=== PATIENT | female | born 1980 | race Caucasian/White ===

== ENCOUNTER 2017-08-31 22:38 | Inpatient (IN) ==
[2017-09-01] MEDS ORDERED: Vancomycin Inj 1 GM/200 ML PIGGYBACK IV.SIG ONE (04:44)
[2017-09-01] MEDS ORDERED: Sod Chloride 0.9% Inj 1,000 ML IV.SIG ONE (04:44)
[2017-09-01] MEDS ORDERED: Piperacil/Tazo 3.375 GM Premix 50 ML IV.SIG ONE (04:44)
[2017-09-01 05:23] LABS: Baso % (Auto) 0.6 % (0.0-2.0); Eos # (Auto) 0.1 th/mm3 (0.0-0.4); Eos % (Auto) 1.9 % (0.0-4.0); Hematocrit 37.2 % (35.0-46.0); Hemoglobin 11.9 gm/dL (11.6-15.3); Lymph # (Auto) 1.9 th/mm3 (1.0-4.8); Lymph % (Auto) 25.3 % (9.0-44.0); Mean Corpuscular Hemoglobin 21.5 pg (27.0-34.0); Mean Corpuscular Volume 67.2 fL (80.0-100.0); Mean Platelet Volume 6.9 fL (7.0-11.0); Mono # (Auto) 0.4 th/mm3 (0.0-0.9); Mono % (Auto) 5.5 % (0.0-8.0); Neut % (Auto) 66.7 % (16.0-70.0); Platelet Count 378 th/mm3 (150-450); Red Blood Count 5.54 mil/mm3 (4.00-5.30); White Blood Count 7.5 th/mm3 (4.0-11.0)
--- NOTE | 2017-09-01 05:25 | ED ---
HPI General Chief complaint: Skin/Abscess/Foreign Body Stated complaint: skin Time Seen by Provider: 09/01/17 03:53 Source: patient Mode of arrival: ambulatory Limitations: no limitations History of Present Illness HPI narrative: The patient is a a 36 year old female who presents to the [facility] emergency department with a history of multiple areas of abscess formation that first began in her wrist on the left. The patient reports that she uses IV heroin and cocaine. The patient reports that she last used IV heroin, last cocaine use was 2 days ago. The patient reports that she has had a skin infection in the past involving the right arm treated by . She reports that this was associated with an infection in her heart. She denies any history of hepatitis or HIV. She denies having any known fevers with this, however she has had chills. She denies having any chest pain, chest pressure, or shortness of breath. She incidentally also reports having a dental abscess. On review of systems otherwise, she denies having any cough, congestion, neck pain, abdominal pain, vomiting, diarrhea, urinary symptoms, or neurologic symptoms. Related Data Home Medications Medication Instructions Recorded Confirmed No Known Home Medications 09/01/17 09/01/17 Allergies Allergy/AdvReac Type Severity Reaction Status Date / Time morphine AdvReac Severe "CHEST Verified 09/01/17 03:52 PRESSURE" Review of Systems ROS Unobtainable All other systems reviewed negative except as stated in HPI [facility] Medical History Medical History delivery delivered (Acute) IVDU (intravenous drug user) (Acute) Multiple sclerosis (Acute) Tubal ligation status (Acute) Surgical History Surgical History History of surgery on arm (Acute) Hx of appendectomy (Acute) Social History Social History Substance History: Active Abuse Second Hand Smoke Exposure: Yes Smoking Status: Current every day smoker Tobacco Type: Cigarettes How Often Do You Have a Drink Containing Alcohol: Never Recent Travel in [facility] within the Last 8 Weeks: No Recent Out of Country Travel within the Last 8 Weeks: No Substance Abuse Detail Heroin: Substance Use Status: Active Route Used Substance Abuse: Intravenously Reason for Use: Calm Down, Feels Good and Get High Immunization History Tetanus Immunization: Unsure Hx Influenza Vaccine This Season: No Exam Const General: cooperative, no acute distress and well developed Nutritional Appearance: well nourished Orientation: alert, awake and oriented x3 HENMT Head: normocephalic and atraumatic Nose: no nasal discharge and no epistaxis Mouth: moist mucous membranes Throat: posterior oropharynx normal Eyes Sclera: normal sclerae Pupils: PERRL Neck Neck: no meningeal signs, trachea midline and no JVD Resp Effort & Inspection: no use of accessory muscles Auscultation: clear to auscultation bilaterally Cardio Rate: regular rate Rhythm: regular rhythm Heart Sounds: no murmurs GI Inspection: non-distended Palpation: soft, no hepatosplenomegaly and nontender Back/Spine/Pelvis Back: no CVA tenderness Cervical Spine: No cervical spinal tenderness Thoracic/Lumbar Spine: No thoracic spinal tenderness and No lumbar spinal tenderness Skin General: dry skin (warm) Other: The patient on examination is noted diffuse swelling of the right upper extremity with swelling and redness at the medial aspect of the right arm. No pointing or area of fluctuance. The patient's dorsal left wrist has an area of erythema, no fluctuance, however crusting noted over the top of this area from prior drainage. The patient on examination of the left groin femoral vein and artery. An ultrasound of the soft tissues has been ordered to see the extent of the area of abscess. A final area of infection is noted along the left medial ankle. There is no fluctuance. The patient has overlying crusting of this area from prior drainage. These areas are tender on palpation. Neuro General: alert and awake Cranial Nerves: other (No facial asymmetry) Speech: speech normal Motor: no movement abnormalities noted Extrem General: normal to inspection (No calf tenderness on palpation.), no clubbing, no cyanosis and edema Laterality: on the right Psych Mood: congruent mood Affect: normal affect Judgment: judgment good Course Initial Documented Vital Signs Temperature 98.8 F 08/31/17 23:13 Pulse Rate 91 H 08/31/17 23:13 Respiratory Rate 18 08/31/17 23:13 Blood Pressure 137/78 08/31/17 23:13 Pulse Oximetry 98 08/31/17 23:13 Last Documented Vital Signs Temperature 98.4 F 09/01/17 15:11 Pulse Rate 75 09/01/17 15:11 Respiratory Rate 18 09/01/17 15:11 Blood Pressure 128/58 L 09/01/17 15:11 Pulse Oximetry 99 09/01/17 15:11 Sign Out Sign Out Data: Patient Sign Out occurred on 09/01/17 at 07:09. Patient's care was discussed, and care was transferred from Gisell Cai MD to Jeancarlos Turner MD. Sign Out Comment: The patient's case was checked out to Dr. Turner at the conclusion of my shift. The patient is pending ultrasound of the right upper extremity to rule out DVT, and left soft tissues of the groin to evaluate the depth and the extent of the abscess formation. Last updated by Gisell Cai MD at 09/01/17 07:08 Post-Handoff Eval: The patient was signed out to me at change of shift. We are waiting ultrasounds of the extremity as well as the inguinal region. Inguinal region shows a 4.2 cm groin abscess. This will be I&D by Lamberto Pham PA-C. Case was discussed with Dr. Denis, who will admit the patient to his service. Patient also has a DVT in her right upper extremity. Medical Decision Making MDM Narrative Medical decision making narrative: During the course of the patient's emergency department visit, the patient's history, examination, and differential diagnosis were reviewed with the patient. The patient was placed on a cardiac cath rn with oximetry and frequent blood pressure monitoring. The patient had IV access obtained and blood work sent for analysis. A diagnostic workup was started to evaluate for possible underlying deep space infection, versus superficial abscess, versus DVT. The patient was initially provided Zosyn and vancomycin after blood cultures and a lactic acid was sent for analysis. The patient was started on normal saline IV fluids. The patient's laboratory studies were overall unremarkable. The patient's ultrasound of the right upper extremity to rule out DVT, ultrasound of the left groin to evaluate for possible deep space infection was pending at the conclusion of my shift. The patient's case was checked out to the oncoming emergency physician to disposition the patient based on the conclusion of her workup. I anticipate that the patient will require admission to the hospitalist service. Differential Diagnosis Differential Diagnosis: Deep space infection, versus superficial abscess, versus bacteremia, versus sepsis, versus DVT Medical Records Medical records reviewed: Yes I reviewed the patient's medical records. POC Test Results POC Urine Results: Negative Lab Data Lab results reviewed: Yes I reviewed the patient's lab results. Result diagrams: 09/01/17 05:00 09/01/17 05:00 Lab Results 09/01/17 09/01/17 09/01/17 Range/Units 05:00 05:00 05:00 WBC (4.0-11.0) th/mm3 RBC (4.00-5.30) mil/mm3 Hgb (11.6-15.3) gm/dL Hct (35.0-46.0) % MCV (80.0-100.0) fL MCH (27.0-34.0) pg MCHC (32.0-36.0) % RDW (11.6-17.2) % Plt Count (150-450) th/mm3 MPV (7.0-11.0) fL Prelim Diff (Auto) Neut % (Auto) (16.0-70.0) % Lymph % (Auto) (9.0-44.0) % Bryan % (Auto) (0.0-8.0) % Eos % (Auto) (0.0-4.0) % Baso % (Auto) (0.0-2.0) % Neut # (Auto) (1.8-7.7) th/mm3 Lymph # (Auto) (1.0-4.8) th/mm3 Bryan # (Auto) (0.0-0.9) th/mm3 Eos # (Auto) (0.0-0.4) th/mm3 Baso # (Auto) (0.0-0.2) th/mm3 WBC Differential Diff Scan Differential Comment Platelet Estimate (Normal) Platelet Morphology (Normal) ESR 20 (0-20) mm/hr PT 10.3 (9.8-11.6) sec INR 1.0 Ratio APTT 30.3 H (24.3-30.1) sec Sodium 136 (136-145) meq/L Potassium 3.7 (3.5-5.1) meq/L Chloride 104 (98-107) meq/L Carbon Dioxide 26.2 (21.0-32.0) meq/L Anion Gap 6 (5-15) meq/L BUN 7 (7-18) mg/dL Creatinine 0.81 (0.50-1.00) mg/dL Estimated GFR 79 L (>89) mL/min Random Glucose 85 (74-106) mg/dL Lactic Acid (0.4-2.0) mmol/L Calcium 8.9 (8.5-10.1) mg/dL Magnesium 2.3 (1.5-2.5) mg/dL Total Bilirubin 0.3 (0.2-1.0) mg/dL AST 12 L (15-37) U/L ALT 16 (10-53) U/L Alkaline Phosphatase 77 (45-117) U/L Total Creatine Kinase 47 (26-192) U/L Troponin I Less than 0.02 L (0.02-0.05) ng/mL Total Protein 9.3 H (6.4-8.2) g/dL Albumin 3.7 (3.4-5.0) g/dL Lipase 71 L (73-393) U/L Urine Color (Yellw/Straw) Urine Clarity (Clear) Urine pH (5.0-8.5) Ur Specific [place] (1.002-1.035) Urine Protein (Neg-Trace) mg/dL Urine Glucose (UA) (Negative) mg/dL Urine Ketones (Negative) mg/dL Urine Occult Blood (Negative) Urine Nitrate (Negative) Urine Bilirubin (Negative) Urine Urobilinogen (Less than 2) mg/dL Ur Leukocyte Esterase (Negative) Urine RBC (0-3) /hpf Urine WBC (0-5) /hpf Ur Squamous Epith Cells (0-5) /hpf Ur Transition Epith Cell (None) /hpf Urine Bacteria (None) /hpf Hyaline Casts (0-3) /lpf Urine Mucus (Occasional) /lpf Micro UA Comment Urine Culture Comments Urine Opiates Screen (Neg) Ur Barbiturates Screen (Neg) Ur Amphetamines Screen (Neg) U Benzodiazepines Scrn (Neg) Urine Cocaine Screen (Neg) U Cannabinoids Screen (Neg) 09/01/17 09/01/17 09/01/17 Range/Units 05:00 05:00 05:00 WBC 7.5 (4.0-11.0) th/mm3 RBC 5.54 H (4.00-5.30) mil/mm3 Hgb 11.9 (11.6-15.3) gm/dL Hct 37.2 (35.0-46.0) % MCV 67.2 L (80.0-100.0) fL MCH 21.5 L (27.0-34.0) pg MCHC 32.0 (32.0-36.0) % RDW 18.0 H (11.6-17.2) % Plt Count 378 (150-450) th/mm3 MPV 6.9 L (7.0-11.0) fL Prelim Diff (Auto) Slide review pending Neut % (Auto) 66.7 (16.0-70.0) % Lymph % (Auto) 25.3 (9.0-44.0) % Bryan % (Auto) 5.5 (0.0-8.0) % Eos % (Auto) 1.9 (0.0-4.0) % Baso % (Auto) 0.6 (0.0-2.0) % Neut # (Auto) 5.0 (1.8-7.7) th/mm3 Lymph # (Auto) 1.9 (1.0-4.8) th/mm3 Bryan # (Auto) 0.4 (0.0-0.9) th/mm3 Eos # (Auto) 0.1 (0.0-0.4) th/mm3 Baso # (Auto) 0.0 (0.0-0.2) th/mm3 WBC Differential . Diff Scan Auto diff confirmed Differential Comment . Platelet Estimate Normal (Normal) Platelet Morphology Normal (Normal) ESR (0-20) mm/hr PT (9.8-11.6) sec INR Ratio APTT (24.3-30.1) sec Sodium (136-145) meq/L Potassium (3.5-5.1) meq/L Chloride (98-107) meq/L Carbon Dioxide (21.0-32.0) meq/L Anion Gap (5-15) meq/L BUN (7-18) mg/dL Creatinine (0.50-1.00) mg/dL Estimated GFR (>89) mL/min Random Glucose (74-106) mg/dL Lactic Acid 0.8 (0.4-2.0) mmol/L Calcium (8.5-10.1) mg/dL Magnesium (1.5-2.5) mg/dL Total Bilirubin (0.2-1.0) mg/dL AST (15-37) U/L ALT (10-53) U/L Alkaline Phosphatase (45-117) U/L Total Creatine Kinase (26-192) U/L Troponin I (0.02-0.05) ng/mL Total Protein (6.4-8.2) g/dL Albumin (3.4-5.0) g/dL Lipase (73-393) U/L Urine Color Yellow (Yellw/Straw) Urine Clarity Hazy H (Clear) Urine pH 5.0 (5.0-8.5) Ur Specific [place] 1.019 (1.002-1.035) Urine Protein Negative (Neg-Trace) mg/dL Urine Glucose (UA) Negative (Negative) mg/dL Urine Ketones Trace H (Negative) mg/dL Urine Occult Blood Negative (Negative) Urine Nitrate Negative (Negative) Urine Bilirubin Negative (Negative) Urine Urobilinogen Less than 2 (Less than 2) mg/dL Ur Leukocyte Esterase Negative (Negative) Urine RBC 1 (0-3) /hpf Urine WBC 4 (0-5) /hpf Ur Squamous Epith Cells 5 (0-5) /hpf Ur Transition Epith Cell <1 (None) /hpf Urine Bacteria Rare H (None) /hpf Hyaline Casts 4 (0-3) /lpf Urine Mucus Many H (Occasional) /lpf Micro UA Comment Culture not ind Urine Culture Comments Culture not ind Urine Opiates Screen (Neg) Ur Barbiturates Screen (Neg) Ur Amphetamines Screen (Neg) U Benzodiazepines Scrn (Neg) Urine Cocaine Screen (Neg) U Cannabinoids Screen (Neg) 09/01/17 Range/Units 05:00 WBC (4.0-11.0) th/mm3 RBC (4.00-5.30) mil/mm3 Hgb (11.6-15.3) gm/dL Hct (35.0-46.0) % MCV (80.0-100.0) fL MCH (27.0-34.0) pg MCHC (32.0-36.0) % RDW (11.6-17.2) % Plt Count (150-450) th/mm3 MPV (7.0-11.0) fL Prelim Diff (Auto) Neut % (Auto) (16.0-70.0) % Lymph % (Auto) (9.0-44.0) % Bryan % (Auto) (0.0-8.0) % Eos % (Auto) (0.0-4.0) % Baso % (Auto) (0.0-2.0) % Neut # (Auto) (1.8-7.7) th/mm3 Lymph # (Auto) (1.0-4.8) th/mm3 Bryan # (Auto) (0.0-0.9) th/mm3 Eos # (Auto) (0.0-0.4) th/mm3 Baso # (Auto) (0.0-0.2) th/mm3 WBC Differential Diff Scan Differential Comment Platelet Estimate (Normal) Platelet Morphology (Normal) ESR (0-20) mm/hr PT (9.8-11.6) sec INR Ratio APTT (24.3-30.1) sec Sodium (136-145) meq/L Potassium (3.5-5.1) meq/L Chloride (98-107) meq/L Carbon Dioxide (21.0-32.0) meq/L Anion Gap (5-15) meq/L BUN (7-18) mg/dL Creatinine (0.50-1.00) mg/dL Estimated GFR (>89) mL/min Random Glucose (74-106) mg/dL Lactic Acid (0.4-2.0) mmol/L Calcium (8.5-10.1) mg/dL Magnesium (1.5-2.5) mg/dL Total Bilirubin (0.2-1.0) mg/dL AST (15-37) U/L ALT (10-53) U/L Alkaline Phosphatase (45-117) U/L Total Creatine Kinase (26-192) U/L Troponin I (0.02-0.05) ng/mL Total Protein (6.4-8.2) g/dL Albumin (3.4-5.0) g/dL Lipase (73-393) U/L Urine Color (Yellw/Straw) Urine Clarity (Clear) Urine pH (5.0-8.5) Ur Specific [place] (1.002-1.035) Urine Protein (Neg-Trace) mg/dL Urine Glucose (UA) (Negative) mg/dL Urine Ketones (Negative) mg/dL Urine Occult Blood (Negative) Urine Nitrate (Negative) Urine Bilirubin (Negative) Urine Urobilinogen (Less than 2) mg/dL Ur Leukocyte Esterase (Negative) Urine RBC (0-3) /hpf Urine WBC (0-5) /hpf Ur Squamous Epith Cells (0-5) /hpf Ur Transition Epith Cell (None) /hpf Urine Bacteria (None) /hpf Hyaline Casts (0-3) /lpf Urine Mucus (Occasional) /lpf Micro UA Comment Urine Culture Comments Urine Opiates Screen Pos H (Neg) Ur Barbiturates Screen Neg (Neg) Ur Amphetamines Screen Neg (Neg) U Benzodiazepines Scrn Neg (Neg) Urine Cocaine Screen Pos H (Neg) U Cannabinoids Screen Pos H (Neg) Imaging Data Radiologist's impression: Chest X-Ray 09/01/17 04:46 CONCLUSION: No acute cardiopulmonary process Lower Extremity Ultrasound 09/01/17 06:40 CONCLUSION: 1. 4.2 cm groin abscess. Venous Doppler Study 09/01/17 06:44 CONCLUSION: 1. Occlusion of the distal cephalic vein which may be chronic. 2. Small volume nonocclusive thrombus involving the distal basilic vein. ECG Data Attestation: I personally reviewed and interpreted this ECG as follows: Interpretation: The patient had an EKG done on arrival that shows a sinus rhythm heart. No acute ST segment elevation, T waves are inverted in V1 and V2. Discharge Plan Discharge Disposition Patient Disposition: 30 Still Patient Discharge Details Diagnosis: Deep vein thrombosis (DVT) of right upper extremity, Abscess of groin, left, Intravenous drug abuse, continuous Physicians Team ED Provider: Jeancarlos Turner ED Midlevel Provider: Lamberto Pham Attending Provider: Chas Meehan ED Status: Left Department Discharge Information Discharge Date/Time: 09/01/17 14:14 Addendum entered and electronically signed by NORMAN Rodriguez 09/01/17 12:40 : INCISION AND DRAINAGE OF ABSCESS: The area was prepped and was sterilely draped. A subcutaneous wheal of 1 % Xylocaine with a total number 6 mL was used to anesthetize the area properly. A number 11 scalpel was used to make a 1 -cm incision across the area of the abscess. The abscess was drained, complex loculations were broken down, and irrigated with normal saline. Cultures were obtained. Quarter inch iodoform packing was placed in the wound. Sterile dressing applied. Patient advised to have packing removed in two days.
[2017-09-01 05:29] LABS: Bacteria,Urine Rare /hpf; Bilirubin,Urine Negative (Negative); Clarity,Urine Hazy (Clear); Color,Urine Yellow (Yellw/Straw); Glucose,Urine (UA) Negative (Negative); Hyaline Casts,Urine 4 /lpf (0-3); Leukocyte Esterase,Urine Negative (Negative); Mucus,Urine Many /lpf (Occasional); Nitrite,Urine Negative (Negative); Specific Gravity,Urine 1.019 (1.002-1.035); Squamous Epithelial Cell,Urine 5 /hpf (0-5); Transitional Epi Cells,Urine <1 /hpf
[2017-09-01 05:32] LABS: Amphetamine Screen,Urine Neg (Neg); Barbiturate Screen,Urine Neg (Neg); Cannabinoid Screen,Urine Pos (Neg); Cocaine Screen,Urine Pos (Neg)
[2017-09-01 05:36] LABS: Opiate Screen,Urine Pos (Neg)
[2017-09-01 05:38] LABS: Activated Partial Thrombo Time 30.3 sec (24.3-30.1); Prothrombin Time 10.3 sec (9.8-11.6)
[2017-09-01 05:42] LABS: Alanine Aminotransferase 16 U/L (10-53); Albumin 3.7 g/dL (3.4-5.0); Anion Gap 6 meq/L (5-15); Aspartate Aminotransferase 12 U/L (15-37); Blood Urea Nitrogen 7 mg/dL (7-18); Calcium 8.9 mg/dL (8.5-10.1); Carbon Dioxide 26.2 meq/L (21.0-32.0); Chloride 104 meq/L (98-107); Glomerular Filtration Rate 79 mL/min (>89); Glucose,Random 85 mg/dL (74-106); Lipase 71 U/L (73-393); Magnesium 2.3 mg/dL (1.5-2.5); Potassium 3.7 meq/L (3.5-5.1); Sodium 136 meq/L (136-145)
[2017-09-01 05:46] LABS: Alkaline Phosphatase 77 U/L (45-117); Total Protein 9.3 g/dL (6.4-8.2)
[2017-09-01 05:50] LABS: Creatine Kinase 47 U/L (26-192)
--- NOTE | 2017-09-01 05:53 | XR ---
EXAM DATE: 09/01/2017 5:25 AM EDT AGE/SEX: 36 years / Female INDICATIONS: Skin abscesses. CLINICAL DATA: This is the patient's initial encounter. Patient reports that signs and symptoms have been present for 1 day and indicates a pain score of 0/10. MEDICAL/SURGICAL HISTORY: None. None. COMPARISON: [facility], CHEST SINGLE AP, 07/17/2012. . FINDINGS: A single AP view of the chest demonstrates the lungs to be symmetrically aerated without evidence of mass, infiltrate or effusion. The cardiomediastinal contours are unremarkable. Osseous structures a re intact. CONCLUSION: No acute cardiopulmonary process Electronically signed by: Maurizio Garzon MD 09/01/2017 5:52 AM EDT
[2017-09-01 06:05] LABS: Platelet Estimate Normal (Normal); Platelet Morphology Normal (Normal)
--- NOTE | 2017-09-01 08:34 | US ---
EXAM DATE: 09/01/2017 8:08 AM EDT AGE/SEX: 36 years / Female INDICATIONS: Left groin abscess. CLINICAL DATA: This is the patient's initial encounter. Patient reports that signs and symptoms have been present for 4 - 6 days and indicates a pain score of 10/10. MEDICAL/SURGICAL HISTORY: . IV drug user. Multiple sclerosis. Appendectomy. Tubal ligation. Surgery to the right arm. COMPARISON: No prior exams available for comparison. FINDINGS: Sonographic evaluation of the left groin was performed utilizing grayscale analysis. There is a compl ex fluid collection within the superficial groin. This is superficial to the common femoral artery an d vein and just deep to the overlying skin surface. It measures 4.2 x 4.2 x 1.7 cm. There is some hyp eremia surrounding this. CONCLUSION: 1. 4.2 cm groin abscess. Electronically signed by: Martin Olivares MD 09/01/2017 8:33 AM EDT
--- NOTE | 2017-09-01 08:39 | US ---
EXAM DATE: 09/01/2017 8:06 AM EDT AGE/SEX: 36 years / Female INDICATIONS: Right arm swelling. CLINICAL DATA: This is the patient's initial encounter. Patient reports that signs and symptoms have been present for 4 - 6 days and indicates a pain score of 8/10. MEDICAL/SURGICAL HISTORY: . IV drug user. Multiple sclerosis. Appendectomy. Tubal ligation. Surgery to right arm. COMPARISON: No prior exams available for comparison. FINDINGS: The distal cephalic vein is occluded. I'm unsure if this represents acute or chronic throm bus. The distal basilic vein shows small volume nonocclusive thrombus. The remaining venous structure s are unremarkable. Other: None. CONCLUSION: 1. Occlusion of the distal cephalic vein which may be chronic. 2. Small volume nonocclusive thrombus involving the distal basilic vein. Electronically signed by: Martin Olivares MD 09/01/2017 8:38 AM EDT
[2017-09-01] MEDS ORDERED: Lidocaine 1% Inj 50 ML Vial INFILTRATN ONE (11:52)
[2017-09-01] MEDS ORDERED: Acetaminophen 325 MG Tablet PO PRN (11:55)
[2017-09-01] MEDS ORDERED: Bisacodyl 10 MG Supp RECTAL PRN (11:55)
--- NOTE | 2017-09-01 12:08 | P.HP ---
History of Present Illness Service: Hospitalist service Primary Care Physician: Vivek Ramires Chief Complaint: Multiple abscesses History of Present Illness: Ms. Mcguire is a 36-year-old female with a history of IV drug use, previous endocarditis who presents to the emergency department on 09/01/2017 due to multiple abscess formation due to IV drug injections. Patient started doing IV drugs approximately 5 years ago. She recently injected in her groin area, ankle , wrist. Most of these areas now have skin abscess. She reports subjective fever and chills. No chest pain, cough, abdominal pain. Denies any changes in bowel or bladder habits. No arrival temperature 98.8F, pulse 91, respiration 18, blood pressure 137/78, pulse oximetry 98% on room air. Unremarkable chest x -ray. Lower extremity ultrasound shows 4.2 cm abscess in her left groin. Right upper extremity ultrasound shows occlusion of the distal cephalic vein which may be chronic, also small-volume nonocclusive thrombus involving the distal basilic vein. - Diagnosis (1) Abscess of groin, left (2) Intravenous drug abuse, continuous Review of Systems All other systems reviewed negative except as stated in HPI PMFSH - History History Provided By: Patient - Medical History Medical History: Medical History (Last Reviewed 09/01/17 @ 07:43 by Gisell Cai MD) delivery delivered IVDU (intravenous drug user) Multiple sclerosis Tubal ligation status - Surgical History Surgical History: Surgical History (Last Reviewed 09/01/17 @ 07:43 by Gisell Cai MD) History of surgery on arm Hx of appendectomy - Tobacco History Second Hand Smoke Exposure: No Tobacco Use In Past 30 Days: Yes Smoking Status: Former smoker Tobacco Type: Cigarettes - Alcohol History How Often Do You Have a Drink Containing Alcohol: Never - Substance Use History Substance History: Active Abuse - Substance Use Type Heroin Status: Active Route Used: Intravenously Reason for Use: Calm Down, Feels Good, Get High - Travel History Recent Travel in the [place] Within the Last 8 Weeks: No Recent Travel Out of the Country Within the Last 8 Weeks: No - Immunization History Tetanus Immunization: Unsure Hx Influenza Vaccine This Season: No Medications and Allergies Active Medications: Active Medications Acetaminophen (Tylenol) 650 mg PO Q4H PRN PRN Reason: Headache, fever, pain 1-5 Al Hydroxide/Mg Hydroxide (Milk Of Magnesia Liq) 30 ml PO Q12H PRN PRN Reason: Mild Constipation Bisacodyl (Dulcolax Supp) 10 mg RECTAL DAILY PRN PRN Reason: SEVERE CONSITIPATION Lactulose (Lactulose Liq) 30 ml PO DAILY PRN PRN Reason: SEVERE CONSITIPATION Lidocaine HCl (Xylocaine 1% Inj) 10 ml INFILTRATN ONCE ONE Stop: 09/01/17 12:16 Sennosides (Senokot) 17.2 mg PO Q12H PRN PRN Reason: Moderate Constipation Allergies Allergy/AdvReac Type Severity Reaction Status Date / Time morphine AdvReac Severe "CHEST Verified 09/01/17 03:52 PRESSURE" Home Medications Medication Instructions Recorded Confirmed Type No Known Home Medications 09/01/17 09/01/17 History Exam Vital signs: Vital Signs 08/31/17 23:13 09/01/17 05:14 09/01/17 05:47 Temperature 98.8 F Pulse Rate 91 H 89 Respiratory Rate 18 18 Blood Pressure 137/78 125/64 Pulse Oximetry 98 98 98 09/01/17 09:00 Temperature Pulse Rate 89 Respiratory Rate 18 Blood Pressure 101/64 Pulse Oximetry 98 Intake & Output 08/31/17 09/01/17 09/01/17 18:59 06:59 18:59 Weight 58.967 kg Narrative: GENERAL: This is a well-nourished, well-developed patient, in no apparent distress. SKIN: Numerous skin lesions present. Small skin abscesses noticed on the ankle , wrists, bilateral groin area. HEAD: Atraumatic. Normocephalic. No temporal or scalp tenderness. EYES: Pupils equal round and reactive. No injection or drainage. ENT: Nose without bleeding, purulent drainage or septal hematoma. Airway patent. NECK: Trachea midline. No lymphadenopathy. Supple, nontender, no meningeal signs. CARDIOVASCULAR: Regular rate and rhythm without murmurs, gallops, or rubs. No JVD. RESPIRATORY: Clear to auscultation. Breath sounds equal bilaterally. No wheezes , rales, or rhonchi. GASTROINTESTINAL: Abdomen soft, non-tender, nondistended. No guarding. MUSCULOSKELETAL: Extremities without clubbing, cyanosis, or edema. NEUROLOGICAL: Awake and alert. Cranial nerves II through XII intact. No focal neurological deficits. Normal speech. Results - Labs CBC & Chem 7: 09/01/17 05:00 09/01/17 05:00 Labs: Laboratory Results - last 24 hr 09/01/17 09/01/17 09/01/17 05:00 05:00 05:00 WBC RBC Hgb Hct MCV MCH MCHC RDW Plt Count MPV Prelim Diff (Auto) Neut % (Auto) Lymph % (Auto) [place] % (Auto) Eos % (Auto) Baso % (Auto) Neut # (Auto) Lymph # (Auto) [place] # (Auto) Eos # (Auto) Baso # (Auto) WBC Differential Diff Scan Differential Comment Platelet Estimate Platelet Morphology ESR 20 PT 10.3 INR 1.0 APTT 30.3 H Sodium 136 Potassium 3.7 Chloride 104 Carbon Dioxide 26.2 Anion Gap 6 BUN 7 Creatinine 0.81 Estimated GFR 79 L Random Glucose 85 Lactic Acid Calcium 8.9 Magnesium 2.3 Total Bilirubin 0.3 AST 12 L ALT 16 Alkaline Phosphatase 77 Total Creatine Kinase 47 Troponin I Less than 0.02 L Total Protein 9.3 H Albumin 3.7 Lipase 71 L Urine Color Urine Clarity Urine pH Ur Specific [place] Urine Protein Urine Glucose (UA) Urine Ketones Urine Occult Blood Urine Nitrate Urine Bilirubin Urine Urobilinogen Ur Leukocyte Esterase Urine RBC Urine WBC Ur Squamous Epith Cells Ur Transition Epith Cell Urine Bacteria Hyaline Casts Urine Mucus Micro UA Comment Urine Culture Comments Urine Opiates Screen Ur Barbiturates Screen Ur Amphetamines Screen U Benzodiazepines Scrn Urine Cocaine Screen U Cannabinoids Screen 09/01/17 09/01/17 09/01/17 05:00 05:00 05:00 WBC 7.5 RBC 5.54 H Hgb 11.9 Hct 37.2 MCV 67.2 L MCH 21.5 L MCHC 32.0 RDW 18.0 H Plt Count 378 MPV 6.9 L Prelim Diff (Auto) Slide review pending Neut % (Auto) 66.7 Lymph % (Auto) 25.3 [place] % (Auto) 5.5 Eos % (Auto) 1.9 Baso % (Auto) 0.6 Neut # (Auto) 5.0 Lymph # (Auto) 1.9 [place] # (Auto) 0.4 Eos # (Auto) 0.1 Baso # (Auto) 0.0 WBC Differential . Diff Scan Auto diff confirmed Differential Comment . Platelet Estimate Normal Platelet Morphology Normal ESR PT INR APTT Sodium Potassium Chloride Carbon Dioxide Anion Gap BUN Creatinine Estimated GFR Random Glucose Lactic Acid 0.8 Calcium Magnesium Total Bilirubin AST ALT Alkaline Phosphatase Total Creatine Kinase Troponin I Total Protein Albumin Lipase Urine Color Yellow Urine Clarity Hazy H Urine pH 5.0 Ur Specific [place] 1.019 Urine Protein Negative Urine Glucose (UA) Negative Urine Ketones Trace H Urine Occult Blood Negative Urine Nitrate Negative Urine Bilirubin Negative Urine Urobilinogen Less than 2 Ur Leukocyte Esterase Negative Urine RBC 1 Urine WBC 4 Ur Squamous Epith Cells 5 Ur Transition Epith Cell <1 Urine Bacteria Rare H Hyaline Casts 4 Urine Mucus Many H Micro UA Comment Culture not ind Urine Culture Comments Culture not ind Urine Opiates Screen Ur Barbiturates Screen Ur Amphetamines Screen U Benzodiazepines Scrn Urine Cocaine Screen U Cannabinoids Screen 09/01/17 05:00 WBC RBC Hgb Hct MCV MCH MCHC RDW Plt Count MPV Prelim Diff (Auto) Neut % (Auto) Lymph % (Auto) [place] % (Auto) Eos % (Auto) Baso % (Auto) Neut # (Auto) Lymph # (Auto) [place] # (Auto) Eos # (Auto) Baso # (Auto) WBC Differential Diff Scan Differential Comment Platelet Estimate Platelet Morphology ESR PT INR APTT Sodium Potassium Chloride Carbon Dioxide Anion Gap BUN Creatinine Estimated GFR Random Glucose Lactic Acid Calcium Magnesium Total Bilirubin AST ALT Alkaline Phosphatase Total Creatine Kinase Troponin I Total Protein Albumin Lipase Urine Color Urine Clarity Urine pH Ur Specific [place] Urine Protein Urine Glucose (UA) Urine Ketones Urine Occult Blood Urine Nitrate Urine Bilirubin Urine Urobilinogen Ur Leukocyte Esterase Urine RBC Urine WBC Ur Squamous Epith Cells Ur Transition Epith Cell Urine Bacteria Hyaline Casts Urine Mucus Micro UA Comment Urine Culture Comments Urine Opiates Screen Pos H Ur Barbiturates Screen Neg Ur Amphetamines Screen Neg U Benzodiazepines Scrn Neg Urine Cocaine Screen Pos H U Cannabinoids Screen Pos H - Imaging Impressions Chest X-Ray 09/01/17 04:46 CONCLUSION: No acute cardiopulmonary process Lower Extremity Ultrasound 09/01/17 06:40 CONCLUSION: 1. 4.2 cm groin abscess. Venous Doppler Study 09/01/17 06:44 CONCLUSION: 1. Occlusion of the distal cephalic vein which may be chronic. 2. Small volume nonocclusive thrombus involving the distal basilic vein. Caprini VTE Risk Assessment Caprini VTE Risk Assessment: Moderate/High Risk (score >= 2) Caprini Risk Assessment Model: Point Value = 1 Point Value = 2 Point Value = 3 Point Value = 5 Age 41-60 Minor surgery BMI > 25 kg/m2 Swollen legs Varicose veins or History of unexplained or recurrent spontaneous Oral contraceptives or hormone replacement Sepsis (< 1 month) Serious lung disease, including pneumonia (< 1 month) Abnormal pulmonary function Acute myocardial infarction Congestive heart failure (< 1 month) History of inflammatory bowel disease Medical patient at bed rest Age 61-74 Arthroscopic surgery Major open surgery (> 45 min) Laparoscopic surgery (> 45 min) Malignancy Confined to bed (> 72 hours) Immobilizing plaster cast Central venous access Age >= 75 History of VTE Family history of VTE Factor V Leiden Prothrombin [id number] Lupus anticoagulant Anticardiolipin antibodies Elevated serum homocysteine Heparin-induced thrombocytopenia Other congenital or acquired thrombophilia Stroke (< 1 month) Elective arthroplasty Hip, pelvis, or leg fracture Acute spinal cord injury (< 1 month) Prophylaxis Regimen: Total Risk Factor Score Risk Level Prophylaxis Regimen 0-1 Low Early ambulation 2 Moderate Order ONE of the following: *Sequential Compression Device (SCD) *Heparin 5000 units SQ BID 3-4 Higher Order ONE of the following medications: *Heparin 5000 units SQ TID *Enoxaparin/Lovenox 40 mg SQ daily (WT < 150 kg, CrCl > 30 mL/min) *Enoxaparin/Lovenox 30 mg SQ daily (WT < 150 kg, CrCl > 10-29 mL/min) *Enoxaparin/Lovenox 30 mg SQ BID (WT < 150 kg, CrCl > 30 mL/min) AND/OR *Sequential Compression Device (SCD) 5 or more Highest Order ONE of the following medications: *Heparin 5000 units SQ TID (Preferred with Epidurals) *Enoxaparin/Lovenox 40 mg SQ daily (WT < 150 kg, CrCl > 30 mL/min) *Enoxaparin/Lovenox 30 mg SQ daily (WT < 150 kg, CrCl > 10-29 mL/min) *Enoxaparin/Lovenox 30 mg SQ BID (WT < 150 kg, CrCl > 30 mL/min) AND *Sequential Compression Device (SCD) Assessment and Plan - Assessment (1) Abscess of groin, left Code(s): L02.214 - Cutaneous abscess of groin Status: Acute (2) Intravenous drug abuse, continuous Code(s): F19.10 - Other psychoactive substance abuse, uncomplicated Status: Acute - Plan Ms. Mcguire is a 36-year-old female with a long history of IV drug abuse, endocarditis who presents to the emergency department due to multiple skin abscesses. She injected in all the sites where she developed skin abscess. She reports subjective fever and chills. On arrival she did not have fever nor did she meet criteria for SIRS or sepsis. Left groin abscess was drained by ED provider. Multiple skin abscesses Chronic IV drug abuse Hx of Endocarditis -Status post I&D of left groin abscess (4.2 cm). -Patient received IV Vancomycin and Zosyn in the ED. -Since patient has no systemic signs of infection, we will initiate PO Doxycycline and Augmentin. -If patient remains afebrile, blood cx negative, she can likely be discharged on 09/02/2017 on Augmentin, Doxycycline. -If Blood cultures are positive, consider switching to IV abx (Vanc/Zosyn). -Follow abscess cultures to narrow down abx. -Acetaminophen, Toradol for pain. Right upper extremity superficial vein thrombosis -Right distal cephalic vein thrombosis which may be chronic. Also distal basilic vein nonocclusive thrombus. -Since there is no evidence of deep vein thrombosis, we will not initiate any long-term anticoagulation. -If prolonged hospitalization anticipated, consider Lovenox 40mg Qday. Full code. Ambulation.
[2017-09-01] MEDS: Ketorolac 10 MG Tablet PO PRN ×2 (15:35→21:59)
--- NOTE | 2017-09-01 23:41 | ECG ---
Date Performed: 09/01/2017 Time Performed: 04:58:29 PTAGE: 36 years EKG: Sinus rhythm POSSIBLE RIGHT VENTRICULAR CONDUCTION DELAY BORDERLINE ECG PREVIOUS TRACING : 07/15/2012 16.17 Compared to previous tracing, rate has decreased DOCTOR: Iván Hutchinson Interpretating Date/Time 09/01/2017 23:39:46
[2017-09-02] MEDS: Ketorolac 10 MG Tablet PO PRN ×3 (06:35→18:45)
[2017-09-02 07:55] LABS: Eos # (Auto) 0.2 th/mm3 (0.0-0.4); Eos % (Auto) 3.4 % (0.0-4.0); Hematocrit 33.7 % (35.0-46.0); Hemoglobin 10.5 gm/dL (11.6-15.3); Lymph # (Auto) 1.5 th/mm3 (1.0-4.8); Lymph % (Auto) 30.6 % (9.0-44.0); Mean Corpuscular Hemoglobin 20.8 pg (27.0-34.0); Mean Corpuscular Volume 67.1 fL (80.0-100.0); Mean Platelet Volume 7.3 fL (7.0-11.0); Mono # (Auto) 0.3 th/mm3 (0.0-0.9); Mono % (Auto) 5.8 % (0.0-8.0); Neut % (Auto) 59.2 % (16.0-70.0); Platelet Count 361 th/mm3 (150-450); Red Blood Count 5.02 mil/mm3 (4.00-5.30); Red Cell Distribution Width 18.1 % (11.6-17.2); White Blood Count 5.1 th/mm3 (4.0-11.0)
[2017-09-02 08:15] LABS: Carbon Dioxide 27.5 meq/L (21.0-32.0)
[2017-09-02 08:16] LABS: Calcium 8.9 mg/dL (8.5-10.1)
--- NOTE | 2017-09-02 08:45 | P.PN ---
Subjective Interval history: Follow up for abscesses, IVDU. The patient reports improvement of her left groin abscess, less edematous and erythematous, although still painful. Denies fevers/chills. Complains of swelling at right forearm, mildly improved. Denies any chest pain or shortness of breath. Denies any other medical complaints at this time. Physical Exam Vital signs: Vital Signs 09/01/17 09:00 09/01/17 13:00 09/01/17 15:11 Temperature 98.4 F Pulse Rate 89 69 75 Respiratory Rate 18 18 Blood Pressure 101/64 129/62 128/58 L Pulse Oximetry 98 97 99 09/01/17 19:28 09/01/17 23:53 09/02/17 03:37 Temperature 98.2 F 98 F Pulse Rate 65 66 61 Respiratory Rate 16 16 16 Blood Pressure 118/70 134/85 107/62 Pulse Oximetry 99 100 100 09/02/17 07:43 Temperature 97.9 F Pulse Rate 66 Respiratory Rate 14 Blood Pressure 122/73 Pulse Oximetry 99 Intake & Output 09/01/17 09/02/17 09/02/17 18:59 06:59 18:59 Intake Total 1250 / 1250 Balance 1250 / 1250 Intake: IV 1250 / 1250 Other: # Voids 2 3 Date of Last Bowel Movement 08/31/17 Narrative: GENERAL: Well-nourished, well-developed middle aged female patient in [facility]. SKIN: Warm and dry. No rash. Left groin with abscess s/p I&D with packing in place, minimal drainage, surrounding edema and minimal erythema. RUE forearm with mild warmth and edema. HEENT: Normocephalic. Atraumatic. Pupils equal and round. Mucous membranes pink and moist. CARDIOVASCULAR: Regular rate and rhythm. No murmur appreciated. RESPIRATORY: No accessory muscle use. Clear to auscultation. Breath sounds equal bilaterally. GASTROINTESTINAL: Abdomen soft, non-tender, nondistended. Normoactive bowel sounds x4. MUSCULOSKELETAL: No obvious deformities. Extremities without clubbing, cyanosis , or edema. NEUROLOGICAL: Awake and alert. No obvious cranial nerve deficits. Motor grossly within normal limits. Moving all extremities spontaneously. Normal speech. PSYCHIATRIC: Appropriate mood and affect; insight and judgment normal. Results - Labs CBC & Chem 7: 09/02/17 06:25 09/02/17 06:25 Laboratory Results - last 24 hr 09/02/17 09/02/17 06:25 06:25 WBC 5.1 RBC 5.02 Hgb 10.5 L Hct 33.7 L MCV 67.1 L MCH 20.8 L MCHC 31.0 L RDW 18.1 H Plt Count 361 MPV 7.3 Neut % (Auto) 59.2 Lymph % (Auto) 30.6 [place] % (Auto) 5.8 Eos % (Auto) 3.4 Baso % (Auto) 1.0 Neut # (Auto) 3.0 Lymph # (Auto) 1.5 [place] # (Auto) 0.3 Eos # (Auto) 0.2 Baso # (Auto) 0.0 WBC Differential . Differential Comment Auto diff final Carbon Dioxide 27.5 BUN 8 Creatinine 0.83 Estimated GFR 77 L Random Glucose 83 Calcium 8.9 Assessment and Plan - Assessment (1) Abscess of groin, left Code(s): L02.214 - Cutaneous abscess of groin Status: Inactive (2) Intravenous drug abuse, continuous Code(s): F19.10 - Other psychoactive substance abuse, uncomplicated Status: Inactive - Plan 36-year-old female with a long history of IV drug abuse, endocarditis who presents to the ED due to multiple skin abscesses. She injected in all the sites where she developed skin abscess. She reports subjective fever and chills. On arrival she did not have fever nor did she meet criteria for SIRS or sepsis. Left groin abscess was drained by ED provider. Multiple skin abscesses: patient IV drug user with multiple skin abscesses, hx of endocarditis 5 years ago. -Left groin U/S showed 4.2 cm groin abscess -Status post I&D of left groin abscess in the ED on 09/01 -Patient received IV Vancomycin and Zosyn in the ED. -Since patient has no systemic signs of infection, we will initiate PO Doxycycline and Augmentin. -If patient remains afebrile, blood cx negative x48hrs, she can likely be discharged on 09/03/2017 on Augmentin, Doxycycline. -Await wound culture -Continue Acetaminophen, Toradol for pain. IVDU: ongoing -counseled on cessation Right upper extremity superficial vein thrombosis -Right distal cephalic vein thrombosis which may be chronic. Also distal basilic vein nonocclusive thrombus. -Since there is no evidence of deep vein thrombosis, we will not initiate any long-term anticoagulation. -apply warm compresses DVT Prophylaxis: Lovenox Full code. Discharge Planning: Likely discharge tomorrow after cultures resulted.
[2017-09-02 08:53] LABS: Potassium 4.2 meq/L (3.5-5.1)
[2017-09-03] MEDS ORDERED: Enoxaparin Inj 40 MG/0.4 ML Syringe SQ SCH ×2 (09:00→13:00)
[2017-09-03] MEDS: Ketorolac 10 MG Tablet PO PRN (09:25)
--- NOTE | 2017-09-03 10:11 | P.PN ---
Subjective Interval history: Follow up for multiple abscess, IVDU. The patient reports her left groin abscess has improved, less erythematous/edematous. However, the patient reports increased swelling at injection site over left dorsal wrist, no active drainage. Denies fevers/chills, chest pain, or shortness of breath. Physical Exam Vital signs: Vital Signs 09/02/17 12:00 09/02/17 15:43 09/02/17 19:42 Temperature 99.1 F 98.5 F 98.7 F Pulse Rate 68 74 71 Respiratory Rate 14 16 16 Blood Pressure 132/80 130/78 133/86 Pulse Oximetry 97 100 97 09/03/17 00:00 09/03/17 04:00 09/03/17 07:29 Temperature 98.5 F 98.6 F 98.1 F Pulse Rate 62 67 67 Respiratory Rate 16 16 16 Blood Pressure 127/64 153/81 H 123/79 Pulse Oximetry 100 100 99 Intake & Output 09/02/17 09/03/17 09/03/17 18:59 06:59 18:59 Other: # Voids 6 Date of Last Bowel Movement 09/02/17 09/02/17 # Bowel Movements 1 Narrative: GENERAL: Well-nourished, well-developed pleasant middle aged female patient in [facility]. SKIN: Warm and dry. No rash. Left groin with abscess s/p I&D with packing in place, minimal drainage, surrounding edema and minimal erythema. RUE forearm with mild warmth and edema. Left dorsal hand with area of erythema, edema, and fluctuance, no active drainage, consistent with abscess. HEENT: Normocephalic. Atraumatic. Pupils equal and round. Mucous membranes pink and moist. CARDIOVASCULAR: Regular rate and rhythm. No murmur appreciated. RESPIRATORY: No accessory muscle use. Clear to auscultation. Breath sounds equal bilaterally. GASTROINTESTINAL: Abdomen soft, non-tender, nondistended. Normoactive bowel sounds x4. MUSCULOSKELETAL: No obvious deformities. Extremities without clubbing, cyanosis , or edema. NEUROLOGICAL: Awake and alert. No obvious cranial nerve deficits. Motor grossly within normal limits. Moving all extremities spontaneously. Normal speech. PSYCHIATRIC: Appropriate mood and affect; insight and judgment normal. Results - Labs CBC & Chem 7: 09/02/17 06:25 09/02/17 06:25 Microbiology 09/01/17 14:10 Wound - Abdominal Gram Stain - Final 09/01/17 14:10 Wound - Abdominal Wound Culture - Preliminary Staphylococcus aureus 09/01/17 05:05 Blood - Peripheral Aerobic Blood Culture - Preliminary No growth in 1 day 09/01/17 05:05 Blood - Peripheral Anaerobic Blood Culture - Preliminary No growth in 1 day 09/01/17 04:34 Blood - Peripheral Aerobic Blood Culture - Preliminary No growth in 1 day 09/01/17 04:34 Blood - Peripheral Anaerobic Blood Culture - Preliminary No growth in 1 day Assessment and Plan - Assessment (1) Abscess of groin, left Code(s): L02.214 - Cutaneous abscess of groin Status: Inactive (2) Intravenous drug abuse, continuous Code(s): F19.10 - Other psychoactive substance abuse, uncomplicated Status: Inactive - Plan 36-year-old female with a long history of IV drug abuse, endocarditis who presents to the ED due to multiple skin abscesses. She injected in all the sites where she developed skin abscess. She reports subjective fever and chills. On arrival she did not have fever nor did she meet criteria for SIRS or sepsis. Left groin abscess was drained by ED provider. Multiple skin abscesses: patient IV drug user with multiple skin abscesses, hx of endocarditis 5 years ago. -Left groin U/S showed 4.2 cm groin abscess -Status post I&D of left groin abscess in the ED on 09/01 -Patient received IV Vancomycin and Zosyn in the ED. -Since patient has no systemic signs of infection, continued antibiotics with PO Doxycycline and Augmentin. -Await wound culture, preliminary with staph aureus -Blood cultures with NG x1day -Continue Acetaminophen, Toradol for pain. -Check LUE U/S for abscess -Consult hand surgery for evaluation of left dorsal hand/wrist abscess IVDU: ongoing -counseled on cessation Right upper extremity superficial vein thrombosis -Right distal cephalic vein thrombosis which may be chronic. Also distal basilic vein nonocclusive thrombus. -Since there is no evidence of deep vein thrombosis, we will not initiate any long-term anticoagulation. -apply warm compresses DVT Prophylaxis: Lovenox sq Full code. Discharge Planning: Await evaluation by hand surgery.
--- NOTE | 2017-09-03 11:06 | US ---
EXAM DATE: 09/03/2017 10:56 AM EDT AGE/SEX: 36 years / Female INDICATIONS: Swelling. Abscess. Occlusion of the distal cephalic vein. Non-occlusive thrombus involv ing the distal basilic vein. CLINICAL DATA: This is the patient's initial encounter. Patient reports that signs and symptoms have been present for 4 - 6 days and indicates a pain score of 2/10. MEDICAL/SURGICAL HISTORY: Multiple sclerosis. Intravenous drug user. Tubal ligation. Appendec salomón. COMPARISON: [facility] [place], US LEG SOFT TISSUE LEFT, 09/01/2017. . FINDINGS: There are findings of abscess involving the dorsal aspect of the wrist measuring 3.7 x 1.5 cm with a second abscess in the antecubital fossa measuring 2 cm in diameter. Hyperemic flow is identified in t he periphery of these collections. CONCLUSION: 1. Findings of abscess as above the level of the wrist and elbow Electronically signed by: Dinh Hollis MD 09/03/2017 11:05 AM EDT
[2017-09-03] MEDS: Enoxaparin Inj 40 MG/0.4 ML Syringe SQ SCH (13:15)
[2017-09-03] MEDS ORDERED: Ketorolac Inj 30 MG/ML (IVP) Vial IV.PUSH ONE ×2 (15:49→20:05)
--- NOTE | 2017-09-03 23:20 | MP ---
cc: Bisi Combs MD DATE OF OPERATION: 09/03/2017 PREOPERATIVE DIAGNOSES: 1. Abscess of right wrist. 2. Abscess of left wrist. POSTOPERATIVE DIAGNOSIS: 1. Abscess of right wrist. 2. Abscess of left wrist. PROCEDURE PERFORMED: 1. Incision and drainage of dorsal abscess of the right wrist. 2. Incision and drainage of dorsal abscess of left wrist. ANESTHESIA: Local. HOT HEAD MACHINE OPERATOR: Bisi Combs MD INDICATIONS FOR PROCEDURE: A 36-year-old female with history of IV drug abuse who injected her wrists. FINDINGS: At the completion of the procedure, both areas which had pus, thick and purulent, were drained and adequately flushed. OPERATIVE TIME: 30 minutes. DESCRIPTION OF PROCEDURE: The patient was treated in the emergency room. She was then placed in the supine position. Both wrists areas were prepped with Betadine and draped in the usual sterile fashion. Lidocaine 2% plain was used to make a field block as well as block over the large dorsal abscess. Once the anesthetic had taken effect, attention was first turned to the right wrist where incision was made down through the skin into the abscess cavity, which immediately drained thick pus. The cavity was opened. Loculations were broken up. The wound was flushed until the effluent was clear. It was then packed with 1/4-inch iodoform packing. Attention was then turned to the left wrist where incision was made after doing a field block with a #11 blade down through the skin and into the abscess cavity. It was then opened and loculations were broken up. It was flushed clean of the effluent and packed with 1/4-inch iodoform packing. Both wrists were then dressed with 4 x 4's, and Wendy. The patient was then given back to the care of the ER staff. The purulence from the right wrist was cultured. The patient tolerated the procedure well. MD EVITA Melara/za/adrian , 06:43 PM , 06:48 PM
--- NOTE | 2017-09-04 00:46 | MB ---
cc: Bisi Combs MD DATE: 09/03/2017 REQUESTING PHYSICIAN: Sandra Denis MD REASON FOR CONSULTATION: Abscesses of the upper extremities. HISTORY OF PRESENT ILLNESS: The patient is a 36-year-old female with history of IV drug abuse. She was noted to have abscesses in the groin and arms. One of the groin was drained. It was noted by the ultrasound that she has possibly to left upper extremity and by admission she has one on the right hand dorsally. Consultation is requested regarding evaluation and treatment of these abscesses. PAST MEDICAL HISTORY: Negative except history of present illness. The patient does have a significant history of IV drug use, multiple sclerosis. REVIEW OF SYSTEMS: Negative except history of present illness. PAST SURGICAL HISTORY: Appendectomy. SOCIAL HISTORY: The patient uses tobacco and drugs. PHYSICAL EXAMINATION: GENERAL: The patient is lying comfortably in the bed. VITAL SIGNS: Temperature is 97.9, pulse of 82, respirations 16, blood pressure is 151/77, pulse oximetry 99 on room air. HEENT: Extraocular muscles are intact. Pupils are equal, round and reactive to light. Mouth is clear. NECK: Supple without masses. LUNGS: Clear. HEART: Regular rate and rhythm. EXTREMITIES: Examination of the upper extremities reveals an abscess on the dorsal aspect of her right hand measuring 1.5 x 1.5 cm in greatest dimension. It is fluctuant and is on the dorsal radial surface of the hand. On the left wrist, the patient has an abscess, which measures 2 x 2 cm in greatest dimension. She also has hardening in the left antecubital fossa, but there is no fluctuance and no pain and no redness. IMPRESSION: The patient appears to have bilateral dorsal wrist abscesses. PLAN: Incision and drainage. The patient understands, accepts the risks and complications of the surgery. MD EVITA Melara/thuy/sammy , 06:41 PM , 06:49 PM
--- NOTE | 2017-09-04 08:30 | P.PN ---
Subjective Interval history: Follow up for multiple abscesses. The patient reports continued erythema, edema , pain at bilateral wrists at site of I&Ds. Left groin packing removed, minimal drainage Denies fevers/chills, chest pains, or shortness of breath. She is requesting toradol to be changed from po to IV. She has no other medical complaints at this time. Physical Exam Vital signs: Vital Signs 09/03/17 11:37 09/03/17 15:53 09/03/17 20:00 Temperature 98.0 F 97.9 F 99.0 F Pulse Rate 78 82 81 Respiratory Rate 16 16 16 Blood Pressure 142/71 H 151/77 H 120/77 Pulse Oximetry 98 99 98 09/04/17 00:00 09/04/17 04:00 09/04/17 07:13 Temperature 98.7 F 97.9 F 97.8 F Pulse Rate 73 70 98 H Respiratory Rate 16 15 16 Blood Pressure 132/93 H 120/76 116/73 Pulse Oximetry 98 100 68 L Narrative: GENERAL: Well-nourished, well-developed pleasant middle aged female patient in [facility]. SKIN: Warm and dry. No rash. Left groin with abscess s/p I&D with packing in place, minimal drainage, surrounding edema and minimal erythema. Bilateral dorsal wrists with abscess s/p I&D with packing and dressing in place, surrounding erythema/edema. RUE forearm and LUE antecubital area with edema, tender to palpation, no fluctuance. HEENT: Normocephalic. Atraumatic. Pupils equal and round. Mucous membranes pink and moist. CARDIOVASCULAR: Regular rate and rhythm. No murmur appreciated. RESPIRATORY: No accessory muscle use. Clear to auscultation. Breath sounds equal bilaterally. GASTROINTESTINAL: Abdomen soft, non-tender, nondistended. Normoactive bowel sounds x4. MUSCULOSKELETAL: No obvious deformities. Extremities without clubbing, cyanosis , or edema. NEUROLOGICAL: Awake and alert. No obvious cranial nerve deficits. Motor grossly within normal limits. Moving all extremities spontaneously. Normal speech. PSYCHIATRIC: Appropriate mood and affect; insight and judgment normal. Results - Labs CBC & Chem 7: 09/02/17 06:25 09/02/17 06:25 Microbiology 09/01/17 05:05 Blood - Peripheral Aerobic Blood Culture - Preliminary No growth in 2 days 09/01/17 05:05 Blood - Peripheral Anaerobic Blood Culture - Preliminary No growth in 2 days 09/01/17 04:34 Blood - Peripheral Aerobic Blood Culture - Preliminary No growth in 2 days 09/01/17 04:34 Blood - Peripheral Anaerobic Blood Culture - Preliminary No growth in 2 days 09/01/17 14:10 Wound - Abdominal Gram Stain - Final 09/01/17 14:10 Wound - Abdominal Wound Culture - Final Staphylococcus aureus - Imaging Impressions Upper Extremity Ultrasound 09/03/17 00:00 CONCLUSION: 1. Findings of abscess as above the level of the wrist and elbow Assessment and Plan - Assessment (1) Abscess of groin, left Code(s): L02.214 - Cutaneous abscess of groin Status: Inactive (2) Intravenous drug abuse, continuous Code(s): F19.10 - Other psychoactive substance abuse, uncomplicated Status: Inactive - Plan 36-year-old female with a long history of IV drug abuse, endocarditis who presents to the ED due to multiple skin abscesses. She injected in all the sites where she developed skin abscess. She reports subjective fever and chills. On arrival she did not have fever nor did she meet criteria for SIRS or sepsis. Left groin abscess was drained by ED provider. Multiple skin abscesses: patient IV drug user with multiple skin abscesses, hx of endocarditis 5 years ago. -Left groin U/S showed 4.2 cm groin abscess -Status post I&D of left groin abscess in the ED on 09/01 -Patient received IV Vancomycin and Zosyn in the ED. -Since patient has no systemic signs of infection, continued antibiotics with PO Doxycycline and Augmentin. -Wound culture with staph aureus -Blood cultures with NG x1day -Continue Acetaminophen, Toradol for pain -Consult hand surgery for evaluation of left and right dorsal hand/wrist abscess; s/p bedside I&D on 09/[address] -Await further clinical improvement IVDU: ongoing -counseled on cessation -Ativan prn withdrawal Right upper extremity superficial vein thrombosis -Right distal cephalic vein thrombosis which may be chronic. Also distal basilic vein nonocclusive thrombus. -Since there is no evidence of deep vein thrombosis, we will not initiate any long-term anticoagulation. -apply warm compresses DVT Prophylaxis: Lovenox sq Full code. Discharge Planning: Discharge pending further clinical improvement.
[2017-09-04] MEDS: Ketorolac Inj 30 MG/ML (IVP) Vial IV.PUSH SCH ×3 (08:53→20:53)
[2017-09-04] MEDS: Enoxaparin Inj 40 MG/0.4 ML Syringe SQ SCH (11:07)
--- NOTE | 2017-09-04 16:49 | P.PNPLA ---
Subjective Remarks: Patient reports that the hands are better but she is concerned about areas in proximal forearms which are indurated. Objective Vital Signs: Vital Signs - 24 hr 09/03/17 20:00 09/04/17 00:00 09/04/17 04:00 Temperature 99.0 F 98.7 F 97.9 F Pulse Rate 81 73 70 Respiratory Rate 16 16 15 Blood Pressure 120/77 132/93 H 120/76 Pulse Oximetry 98 98 100 09/04/17 07:13 09/04/17 12:00 Temperature 97.8 F 97.9 F Pulse Rate 98 H 69 Respiratory Rate 16 16 Blood Pressure 116/73 138/75 Pulse Oximetry 68 L 100 Intake & Output 09/02/17 09/03/17 09/04/17 09/05/17 06:59 06:59 06:59 06:59 Intake Total 1250 / 1250 Balance 1250 / 1250 Laboratory Results: Microbiology 09/03/17 18:38 Gram Stain - Final Abscess - Wrist Wound Culture - Preliminary 09/01/17 05:05 Aerobic Blood Culture - Preliminary Blood - Peripheral No growth in 3 days Anaerobic Blood Culture - Preliminary No growth in 3 days 09/01/17 04:34 Aerobic Blood Culture - Preliminary Blood - Peripheral No growth in 3 days Anaerobic Blood Culture - Preliminary No growth in 3 days Result Diagrams: 09/02/17 06:25 09/02/17 06:25 Exam Findings: No further evidence of abscess formation. Hard induration in right proximal forearm. Assessment and Plan - Plan Impression: The hand infections are under control. Possible additional involvement of DVT. Plan: Continue with local wound care.
[2017-09-05] MEDS: Ketorolac Inj 30 MG/ML (IVP) Vial IV.PUSH SCH ×3 (03:00→15:30)
[2017-09-05] MEDS ORDERED: Glycopyrrolate Inj 1 MG/5 ML Syringe IV.PUSH ONE (03:11)
[2017-09-05] MEDS ORDERED: Lidocaine PF 1% Inj 5 ML Syringe INFILTRATN ONE (03:11)
--- NOTE | 2017-09-05 08:36 | P.PN ---
Subjective Interval history: Follow up for multiple abscesses. The patient reports her bilateral dorsal wrist abscesses and left groin abscesses are improving. However, she is very concerned about her right upper extremity antecubital area with increasing swelling and erythema throughout admission. Denies fevers or chills. Denies chest pain or shortness of breath. Denies any other medical complaints at this time. Physical Exam Vital signs: Vital Signs 09/04/17 12:00 09/04/17 16:00 09/04/17 19:22 Temperature 97.9 F 98.8 F 99.7 F H Pulse Rate 69 78 76 Respiratory Rate 16 16 16 Blood Pressure 138/75 117/75 134/76 Pulse Oximetry 100 98 100 09/04/17 23:09 09/05/17 03:29 Temperature 98.0 F 98.3 F Pulse Rate 75 70 Respiratory Rate 17 16 Blood Pressure 146/75 H 122/73 Pulse Oximetry 100 100 Narrative: GENERAL: Well-nourished, well-developed pleasant middle aged female patient in [facility]. SKIN: Warm and dry. No rash. Left groin with abscess s/p I&D, packing removed, healing well, no further drainage. Bilateral dorsal wrists with abscess s/p I&D , packing removed, surrounding erythema/edema, however much improved. RUE antecubital space with new area of induration and fluctuance, tender to palpation. LUE antecubital area with mild edema, tender to palpation, no fluctuance. HEENT: Normocephalic. Atraumatic. Pupils equal and round. Mucous membranes pink and moist. CARDIOVASCULAR: Regular rate and rhythm. No murmur appreciated. RESPIRATORY: No accessory muscle use. Clear to auscultation. Breath sounds equal bilaterally. GASTROINTESTINAL: Abdomen soft, non-tender, nondistended. Normoactive bowel sounds x4. MUSCULOSKELETAL: No obvious deformities. Extremities without clubbing, cyanosis , or edema. NEUROLOGICAL: Awake and alert. No obvious cranial nerve deficits. Motor grossly within normal limits. Moving all extremities spontaneously. Normal speech. PSYCHIATRIC: Appropriate mood and affect; insight and judgment normal. Results - Labs CBC & Chem 7: 09/02/17 06:25 09/02/17 06:25 Microbiology 09/03/17 18:38 Abscess - Wrist Gram Stain - Final 09/03/17 18:38 Abscess - Wrist Wound Culture - Preliminary 09/01/17 05:05 Blood - Peripheral Aerobic Blood Culture - Preliminary No growth in 3 days 09/01/17 05:05 Blood - Peripheral Anaerobic Blood Culture - Preliminary No growth in 3 days 09/01/17 04:34 Blood - Peripheral Aerobic Blood Culture - Preliminary No growth in 3 days 09/01/17 04:34 Blood - Peripheral Anaerobic Blood Culture - Preliminary No growth in 3 days - Imaging Chest X-Ray 09/01/17 04:46 CONCLUSION: No acute cardiopulmonary process Lower Extremity Ultrasound 09/01/17 06:40 CONCLUSION: 1. 4.2 cm groin abscess. Venous Doppler Study 09/01/17 06:44 CONCLUSION: 1. Occlusion of the distal cephalic vein which may be chronic. 2. Small volume nonocclusive thrombus involving the distal basilic vein. Upper Extremity Ultrasound 09/03/17 00:00 CONCLUSION: 1. Findings of abscess as above the level of the wrist and elbow Upper Extremity Ultrasound 09/05/17 00:00 CONCLUSION: 1. Deep complex fluid collection in the antecubital fossa with venous thrombosis 2. No apparent foreign body.. Assessment and Plan - Assessment (1) Abscess of groin, left Code(s): L02.214 - Cutaneous abscess of groin Status: Inactive (2) Intravenous drug abuse, continuous Code(s): F19.10 - Other psychoactive substance abuse, uncomplicated Status: Inactive - Plan 36-year-old female with a long history of IV drug abuse, endocarditis who presents to the ED due to multiple skin abscesses. She injected in all the sites where she developed skin abscess. She reports subjective fever and chills. On arrival she did not have fever nor did she meet criteria for SIRS or sepsis. Left groin abscess was drained by ED provider. Multiple skin abscesses: patient IV drug user with multiple skin abscesses, hx of endocarditis 5 years ago. -Left groin U/S showed 4.2 cm groin abscess -Status post I&D of left groin abscess in the ED on 09/01 -Patient received IV Vancomycin and Zosyn in the ED. -Since patient has no systemic signs of infection, continued antibiotics with PO Doxycycline and Augmentin. -Wound culture with staph aureus -Blood cultures with NG x1day -Continue Acetaminophen, Toradol for pain -Consulted hand surgery s/p bedside I&D of bilateral wrist abscess on 09/03, packing now removed -Checked RUE U/S 09/05 as patient with increased edema/fluctuance at right AC , U/S showed deep complex fluid collection in the antecubital fossa with venous thrombosis. -Dr. Combs plans to take the patient to the OR today for I&D of bilateral AC fossa abscess IVDU: ongoing -counseled on cessation -Ativan prn withdrawal Right upper extremity superficial vein thrombosis -Right distal cephalic vein thrombosis which may be chronic. Also distal basilic vein nonocclusive thrombus. -Since there is no evidence of deep vein thrombosis, we will not initiate any long-term anticoagulation. -apply warm compresses DVT Prophylaxis: Lovenox sq Full code. Discharge Planning: Discharge pending further clinical improvement. Going to OR today for I&D of right antecubital fossa abscess.
[2017-09-05] MEDS: Enoxaparin Inj 40 MG/0.4 ML Syringe SQ SCH (09:20)
--- NOTE | 2017-09-05 09:32 | US ---
EXAM DATE: 09/05/2017 9:25 AM EDT AGE/SEX: 36 years / Female INDICATIONS: Right upper extremity abscess. CLINICAL DATA: This is the patient's initial encounter. Patient reports that signs and symptoms have been present for 1 day and indicates a pain score of 4/10. MEDICAL/SURGICAL HISTORY: Multiple sclerosis. IVDU. Appendectomy. Tubal ligation. Surgery ri ght arm. COMPARISON: No prior exams available for comparison. FINDINGS: 3.5 cm complex fluid collection deep in the antecubital fossa with thrombosis of the cephalic vein. CONCLUSION: 1. Deep complex fluid collection in the antecubital fossa with venous thrombosis 2. No apparent foreign body.. Electronically signed by: Lucas Zabala MD 09/05/2017 9:30 AM EDT
[2017-09-05] MEDS ORDERED: Chlorhexidine Gluconate 2% 1 Pack (2 Cloths) TOPICAL SCH (13:15)
[2017-09-05] MEDS ORDERED: Metoprolol Tartrate 25 MG Tablet PO SCH (13:15)
[2017-09-05] MEDS ORDERED: Sodium Chlor 0.9% Inj 500 ML IV.SIG SCH (14:00)
[2017-09-05] MEDS ORDERED: Lidocaine 2% Inj 50 ML Vial ONE (16:44)
[2017-09-05] MEDS ORDERED: Bupivacaine PF 0.5% Inj 30 ML Vial ONE (17:00)
[2017-09-05] MEDS ORDERED: Ketamine Inj 50 MG/5 ML Syringe IV.PUSH ONE (17:19)
--- NOTE | 2017-09-05 18:11 | P.BOP ---
- Preoperative Diagnosis (1) Abscess - Postoperative Diagnosis (1) Abscess Date of procedure: 09/05/17 Procedure: Incision and drainage of bilateral antecubital fossa abscesses. Surgeon: Bisi Combs MD Estimated blood loss (mL): 5 Condition: stable Disposition: PACU
[2017-09-05] MEDS ORDERED: fentaNYL Citrate Inj 100 MCG/2 ML Ampul ONE (18:19)
--- NOTE | 2017-09-05 18:37 | MP ---
cc: Bisi Combs MD DATE OF OPERATION: 09/05/2017 PREOPERATIVE DIAGNOSES: 1. Abscess of right antecubital fossa. 2. Abscess of left antecubital fossa. POSTOPERATIVE DIAGNOSES: 1. Abscess of right antecubital fossa. 2. Abscess of left antecubital fossa. PROCEDURE PERFORMED: 1. Incision and drainage of left antecubital fossa abscess with insertion of packing. 2. Incision and drainage of right antecubital fossa abscess with insertion of packing. ANESTHESIA: General. SURGEON: Bisi Combs MD INDICATIONS FOR PROCEDURE: This is a 36-year-old female IV drug abuser with bilateral antecubital fossa abscesses. FINDINGS: At the completion of the procedure, both abscesses had been drained, irrigated and packed. OPERATIVE TIME: Approximately 30 minutes. DESCRIPTION OF PROCEDURE: The patient was seen preoperatively where the sites and sides were identified and marked. The patient was then taken to the operating room and placed in supine position. Her identity was checked against the arm band and the consent form, site and side confirmed. Timeout called prior to beginning the procedure. Both antecubital fossa areas were prepped with Betadine and draped in the usual sterile fashion. Attention was first turned to the left antecubital fossa. The area was infiltrated with bupivacaine 0.5% plain peripherally as a field block. A #15 blade was then used to make a transverse incision approximately 2 cm in length, down through the skin and through the subcutaneous tissue. Using sharp and blunt dissection, the abscess cavity was entered. It was copiously irrigated with saline. Loculations were broken up in the cavity. Once the effluent was clear, it was packed with 1/4 inch iodoform packing. It was then cleansed of Betadine and blood and dressed with Telfa, 4 x 4's and Wendy. Attention was then turned to the right wrist, which had been prepped with Betadine and draped in the usual sterile fashion as noted above. A #15 blade was used to make a transverse incision through the skin, down through the subcutaneous tissue. Using sharp and blunt dissection, the abscess cavity was entered. This one had approximately 2.5 mL of thick purulent material compared to the left side, which had approximately 1 mL of pus. Loculations were broken up with a clamp. The cavity was quite large with a volume of probably, as noted above, 2.5 mL. It was then copiously irrigated with saline. Once effluent was clear, it was packed with 1/4 inch iodoform packing and dressed in the same fashion with Telfa, 4 x 4's, and Wendy. The patient was then taken from the operating room to the recovery room in satisfactory condition, having tolerated the procedure well. Postoperative instructions include removing the packing in the morning and doing daily dressing changes. Of note, is both areas were infiltrated with a field blocks using the 0.5% bupivacaine. MD EVITA Melara/KARLA , 06:19 PM , 06:27 PM
[2017-09-05 18:58] VITALS: RESP 16
[2017-09-05] MEDS ORDERED: Ketorolac 10 MG Tablet PO PRN (20:31)
[2017-09-05 23:42] VITALS: TEMP 97.9; O2SAT 97
[2017-09-06 01:23] VITALS: BP 190/77; PULSE 79
--- NOTE | 2017-10-08 07:52 | P.DS ---
Date of admission: 09/05/17 16:07 Primary care physician: Vivek Ramires Brief History from admission: Ms. Mcguire is a 36-year-old female with a history of IV drug use, previous endocarditis who presents to the emergency department on 09/01/2017 due to multiple abscess formation due to IV drug injections. Patient started doing IV drugs approximately 5 years ago. She recently injected in her groin area, ankle , wrist. Most of these areas now have skin abscess. She reports subjective fever and chills. No chest pain, cough, abdominal pain. Denies any changes in bowel or bladder habits. No arrival temperature 98.8F, pulse 91, respiration 18, blood pressure 137/78, pulse oximetry 98% on room air. Unremarkable chest x -ray. Lower extremity ultrasound shows 4.2 cm abscess in her left groin. Right upper extremity ultrasound shows occlusion of the distal cephalic vein which may be chronic, also small-volume nonocclusive thrombus involving the distal basilic vein. DS: Diagnosis - Discharge Diagnosis (1) Abscess of groin, left Status: Inactive (2) Intravenous drug abuse, continuous Status: Inactive DS: Summary Hospital Course: Patient left AMA. 36-year-old female with a long history of IV drug abuse, endocarditis who presents to the ED due to multiple skin abscesses. She injected in all the sites where she developed skin abscess. She reports subjective fever and chills. On arrival she did not have fever nor did she meet criteria for SIRS or sepsis. Left groin abscess was drained by ED provider. Multiple skin abscesses: patient IV drug user with multiple skin abscesses, hx of endocarditis 5 years ago. -Left groin U/S showed 4.2 cm groin abscess -Status post I&D of left groin abscess in the ED on 09/01 -Patient received IV Vancomycin and Zosyn in the ED. -Since patient has no systemic signs of infection, continued antibiotics with PO Doxycycline and Augmentin. -Wound culture with staph aureus -Blood cultures with NG x1day -Continue Acetaminophen, Toradol for pain -Consulted hand surgery s/p bedside I&D of bilateral wrist abscess on 09/03, packing now removed -Checked RUE U/S 09/05 as patient with increased edema/fluctuance at right AC , U/S showed deep complex fluid collection in the antecubital fossa with venous thrombosis. -Dr. Combs performed I&D in the OR on 09/05/2017. IVDU: ongoing -counseled on cessation -Ativan prn withdrawal Right upper extremity superficial vein thrombosis -Right distal cephalic vein thrombosis which may be chronic. Also distal basilic vein nonocclusive thrombus. -Since there is no evidence of deep vein thrombosis, we will not initiate any long-term anticoagulation. -apply warm compresses DVT Prophylaxis: Lovenox sq Patient left AMA at night on 09/06/2017. - Time Spent with Patient Total time spent providing and/or coordinating discharge services: Less than 30 minutes - Quality: VTE Deep Vein Thrombosis/Pulmonary Embolism Present on Admission: No Exam Narrative: Patient left AMA. Results Procedures completed during hospitalization: Incision and drainage of bilateral antecubital fossa abscesses. 09/05/2017. - Impressions ITS Impressions Chest X-Ray 09/01/17 04:46 CONCLUSION: No acute cardiopulmonary process Lower Extremity Ultrasound 09/01/17 06:40 CONCLUSION: 1. 4.2 cm groin abscess. Venous Doppler Study 09/01/17 06:44 CONCLUSION: 1. Occlusion of the distal cephalic vein which may be chronic. 2. Small volume nonocclusive thrombus involving the distal basilic vein. Upper Extremity Ultrasound 09/05/17 00:00 CONCLUSION: 1. Deep complex fluid collection in the antecubital fossa with venous thrombosis 2. No apparent foreign body.. Discharge Plan - Discharge Disposition Patient Disposition: Left Against Medical Advice - Discharge Order Discharge Orders: AMA Discharge (Routine); Ordered 09/06/17 Ordered By: Parul Murphy - Physicians Team Attending Provider: Chas Meehan Other Providers: Bisi Combs MD
== END 2017-09-06 03:12 | disposition left against medical advice (07) ==
LOC: NEPGCP 22:38 → NEPE 22:38 → NEDA 09-01 12:06 → INTOOBSV 09-01 12:06 → NEDA 09-01 14:14 → NEPGCP 09-01 15:07
PROVIDERS: ADMIT Internal Medicine; ATTEND Internal Medicine